=== PATIENT | female | born 1950 ===

== ENCOUNTER 2016-12-21 14:06 | Outpatient (CLI) | payer MEDICARE, BC, OTHER ==
[2014-12-12 12:27] VITALS: O2SAT 94
== END 2016-12-21 14:07 | disposition home or self-care (01) | DRG 556 ==
LOC: CONVCARE 14:06
PROVIDERS: ATTEND Orthopaedic Surgery
DX: M25.522 Pain in left elbow (principal); M25.622 Stiffness of left elbow, not elsewhere classified; M75.42 Impingement syndrome of left shoulder; M75.102 Unspecified rotator cuff tear or rupture of left shoulder, not specified as traumatic
CPT/HCPCS: 73070